=== PATIENT | male | born 1995 | race Caucasian/White ===

== ENCOUNTER 2020-05-26 19:02 | Emergency (ER) | payer BC, SELFPAY ==
[2020-05-26 19:07] VITALS: BP 136/84; PULSE 84; RESP 16; TEMP 36.7; O2SAT 99
--- NOTE | 2020-05-26 19:10 | ED.GENADUL_ITS ---
Discharge Plan Disposition Patient Disposition: HOME Condition: Good Discharge Details Clinical Impression: Adverse reaction to drug Primary Care Provider: Alejo Lai ED Provider: Margarita Hargrove Home Meds and New Rx's Prescriptions: No Action No Known Home Meds RF: 0 Discharge Instructions Instructions: Anaphylaxis (ED) Additional Instructions: Your exam and vital signs are reassuring here today. No evidence of allergic reaction at this time. However, if you develop shortness of breath, to breathing, wheezing, rash, vomiting or other new/worsening symptoms to seek care urgently once again. Otherwise, please follow-up with primary care next week for reevaluation. Referrals: Bettye Aguilar [Emergency Nurse] - Discharge Data Discharge Date/Time-TO BE ENTERED AT DEPARTURE: 05/26/20 20:24 Medical Decision Making Patient is a 24-year-old gentleman presenting today with concern for potential reaction from [employer] Covid vaccine. Reports he received the vaccine approximately 1 hour ago. He states that 10 minutes after receiving the injection, he noted his injected arm was painful, felt nauseous and felt he was going to have diarrhea. He reports that he resisted the urge of any diarrhea or vomiting. The symptoms have since subsided and now he is feeling hazy. On exam, patient appears anxious. Vital signs are stable. Lungs are clear. No rash. No intraoral lesions. Not see any evidence to suggest allergic reaction at this point. His vague, brief and ever-changing symptoms, I have been questioning of this may be anxiety driven. Out of an abundance of caution however, please keep monitor on the patient and will continue to reassess him for any developing symptoms. Patient was monitored in department for another hour. Reporting his symptoms clearly resolved. Feeling back to baseline. Advised that I am unclear if this is an adverse reaction versus anxiety associated with the vaccine. I did advise follow-up with primary care in 1 week for reevaluation. Return precautions were discussed. Patient does live locally and is able to return if he develops any signs of allergic reaction. All of his questions and concerns were addressed and he is in agreement this plan. HPI General Mode of arrival: ambulatory . Date/Time Provider Initiated Documentation: 05/26/20 19:10 . Limitations to Documentation: no limitations . Information obtained by: patient and RN notes reviewed . History of Present Illness 24 year old M presents to the emergency department with the chief complaint of Feels hazy, described as moderate, Quality is described as aching (Left arm), and is localized to the left and upper extremity. Patient reports no radiation. Patient started experiencing this hour(s) (1) and it has been other (Symptoms have been evolving since Covid vaccine). No relieving factors improve symptom(s), Other factors that worsen symptoms (Occurred after receiving Covid vaccine) . Patient notes nausea/vomiting (Nauseated initially, now resolved); denies chest pain, fever/chills, headaches, rash, shortness of breath, syncope and weakness. Patient did receive the following treatments prior to arrival, none Related Data Home Medications Medication Instructions Recorded Confirmed Unknown [No Known Home Meds] 04/29/17 05/26/20 Allergies Allergy/AdvReac Type Severity Reaction Status Date / Time No Known Allergies Allergy Unverified 05/26/20 19:13 Review of Systems Constitutional Constitutional: Reports as per HPI, Denies chills, Denies fever(s) and Denies headache(s) Eyes Eyes: Reports as per HPI ENT Ears, Nose, Mouth, and Throat: Reports as per HPI and Denies headache(s) Cardiovascular Cardiovascular: Denies chest pain Respiratory Respiratory: Reports as per HPI Gastrointestinal Gastrointestinal: Reports as per HPI Integumentary/Breasts Skin/Breast: Reports as per HPI Neurologic Neurologic: Denies headache(s) [facility] Social History Smoking/Tobacco Use Status: Never Smoking risk assessment performed?: Yes Alcohol Intake: current Alcohol Intake frequency: holidays/special occasions only Drug use: Never Substance use type: does not use Do you feel safe at home: Yes Do you feel safe in your relationship?: Yes Exam Const General: cooperative, healthy appearing, comfortable, no acute distress, well developed and anxious Nutritional Appearance: average body habitus and well nourished Orientation: alert, awake and oriented x3 HENMT Head: normal to inspection Ears: hearing grossly normal bilaterally Face and sinus: normal facial exam Mouth: oral mucosae normal, lip normal, tongue normal, oropharynx normal, moist mucous membranes, no drooling and no muffled voice Teeth and gingiva: dentition normal Throat: posterior oropharynx normal Eyes General: appearance normal, both eyes and all related structures Neck Neck: normal visual inspection, full ROM, no lymphadenopathy, no meningeal signs and trachea midline Resp Effort & Inspection: normal respiratory effort, able to speak in complete sentences, no respiratory distress and no use of accessory muscles Auscultation: clear to auscultation bilaterally Cardio Rate: regular rate Rhythm: regular rhythm Heart Sounds: S1 normal and S2 normal Skin General skin exam: no rashes or lesions noted Neuro General: patient alert and patient awake Cognition: normal cognition Speech: speech normal Gait: normal gait Psych Appearance: grossly normal and well kempt Mental Status: mental status grossly normal Speech and Movement: speech and movement normal
[2020-05-26 19:21] VITALS: BP 131/82; PULSE 68; PULSE 73; RESP 9; O2SAT 100
[2020-05-26 19:22] VITALS: PULSE 80; RESP 9; O2SAT 100
[2020-05-26 19:30] VITALS: PULSE 77; RESP 14; O2SAT 100
[2020-05-26 19:32] VITALS: BP 100/72; PULSE 69; PULSE 73; RESP 16; O2SAT 100
[2020-05-26 20:22] VITALS: BP 112/70; PULSE 84; RESP 16; O2SAT 100
== END 2020-05-26 20:24 | disposition home or self-care (01) ==
PROVIDERS: Emergency Provider Physician Assistant; PCP Pediatrics
DX: R11.0 Nausea (principal); R41.0 Disorientation, unspecified; T50.B95A Adverse effect of other viral vaccines, initial encounter
CPT/HCPCS: 99281; 99282

== ENCOUNTER 2022-06-06 11:52 | Outpatient (CLI) | payer BC, SELFPAY ==
--- NOTE | 2022-06-06 11:45 | RT.EKG_ITS ---
APPROVED REPORT Exam: Resting ECG Reason for Exam: VASILIYI Patient Location: O HR:87 bpm ECG Measurements Heart Rate 87 AXIS CA 135 P 52 QRSd 93 QRS 71 QT 339 T 61 QTc 408 Conclusion Sinus rhythm...normal P axis, V-rate 50- 99
== END 2022-06-06 11:53 | disposition home or self-care (01) ==
LOC: DI.CM 11:53
PROVIDERS: PCP Pediatrics; Visit Provider Physician Assistant
DX: R07.89 Other chest pain (principal)
CPT/HCPCS: 93010

== ENCOUNTER 2022-08-11 16:57 | Emergency (ER) | payer BC, SELFPAY ==
[2022-08-11 17:09] VITALS: BP 136/82; PULSE 92; RESP 15; TEMP 37.2; O2SAT 97
--- NOTE | 2022-08-11 18:00 | DI.RAD_ITS ---
Exam(s) XR FINGER RT INDEX EXAM: XR FINGER RT INDEX CLINICAL HISTORY: pip joint pain. TECHNIQUE: 2D digital imaging was performed. COMPARISON: No exams were available for comparison FINDINGS: 3 views No evidence fracture or dislocation. Some swelling around PIP joint level of the finger is noted but no fracture seen. No radiopaque foreign body. IMPRESSION: Soft tissue swelling in the region the PIP joint. However, there are no fractures DATA REPOSITORY: RADIATION DOSE DELIVERED:
--- NOTE | 2022-08-11 19:04 | DI.VRAD_ITS ---
PROCEDURE INFORMATION: Exam: XR Right Finger(s) Exam date and time: 08/11/2022 6:41 PM Age: 27 years old Clinical indication: Other: Pip pain TECHNIQUE: Imaging protocol: Radiologic exam of the right fingers. Views: Minimum 2 views. COMPARISON: No relevant prior studies available. FINDINGS: Bones/joints: Overall osseous mineralization is normal. There is a 1.5 x 1 mm focal osseous lucency at the dorsal base of the 2nd middle phalanx adjacent to the proximal interphalangeal joint on the lateral view. There are no acute displaced fractures or subluxations. The joint spaces are maintained without degenerative changes. Soft tissues: There is mild soft tissue swelling around the 2nd proximal interphalangeal joint. IMPRESSION: Mild soft tissue swelling around the 2nd proximal interphalangeal joint. There is a 1 x 1.5 mm focal osseous lucency adjacent to the 2nd proximal interphalangeal joint on one view. Cannot exclude tiny inflammatory osseous erosion associated with inflammatory arthropathy. Recommend clinical correlation. Dictated and Authenticated by: Glenn Garza MD. Ordering:SARAH Solis MD
--- NOTE | 2022-08-11 22:48 | W.ED.GENAD ---
Discharge Plan Disposition Patient Disposition: Home Condition: Stable Discharge Details Clinical Impression: Finger swelling, Decreased range of motion of finger Primary Care Provider: Lindsey Katz ED Provider: Irma Reynolds Home Meds and New Rx's Prescriptions: No Action No Known Home Meds Discharge Instructions Additional Instructions: Take ibuprofen and Tylenol as needed for pain Follow-up with orthopedics you return earlier should you have new or worsening complaints Referrals: Jose Angel Morton MD [ [facility] STAFF PHYSICIAN] - Medical Decision Making Patient with swelling and tenderness to PIP joint, no overlying erythema, diminished flexion significantly, extension intact Vascularly intact with brisk cap refill No evidence of secondary infection X-ray shows possible arthritis but also concern for volar plate fracture, will refer to orthopedics for further assessment Return precautions reviewed and patient expressed understanding HPI General Date/Time Provider Initiated Documentation: 08/11/22 18:12. HPI Narrative: This 27-year-old male presents with report of right index finger injury 3 months ago. He states that he has been persistently swelling which is why he presents. States he is having difficulty flexing it at this time. Denies any redness. States has been wearing a splint intermittently. Related Data Home Medications Medication Instructions Recorded Confirmed Unknown [No Known Home Meds] 04/29/17 08/11/22 Allergies Allergy/AdvReac Type Severity Reaction Status Date / Time No Known Allergies Allergy Unverified 08/11/22 17:25 General Stated Complaint: Orthopedic CASI: 4 PFSH All Active Problems (Updated 08/11/22 @ 19:15 by MARILIN Montemayor) Finger swelling (Acute) Decreased range of motion of finger (Acute) Adverse reaction to drug (Acute) Social History Smoking/Tobacco Use Status: Never Smoking risk assessment performed?: Yes Alcohol Intake: current Alcohol Intake frequency: holidays/special occasions only Drug use: Never Substance use type: does not use Do you feel safe at home: Yes Do you feel safe in your relationship?: Yes Course Vital Signs Vital signs: Vital Signs Temperature 37.2 C 08/11/22 17:09 Pulse 92 H 08/11/22 17:09 Respiratory Rate 15 08/11/22 17:09 Blood Pressure 136/82 08/11/22 17:09 Pulse Oximetry 97 08/11/22 17:09 Temperature 37.2 C 08/11/22 17:09 Temperature Source Oral 08/11/22 17:09 Pulse 92 H 08/11/22 17:09 Respiratory Rate 15 08/11/22 17:09 Respiratory Effort Normal 08/11/22 17:12 Blood Pressure 136/82 08/11/22 17:09 Blood Pressure Position Sitting 08/11/22 17:09 Pulse Oximetry 97 08/11/22 17:09 Oxygen Delivery Method Room Air 08/11/22 17:09 Oxygen Flow Rate 0 08/11/22 17:09 Pain Level 2 08/11/22 17:13
== END 2022-08-11 19:25 | disposition home or self-care (01) ==
PROVIDERS: Emergency Provider Physician Assistant; PCP Nurse Practitioner Family
DX: R22.31 Localized swelling, mass and lump, right upper limb (principal); M25.641 Stiffness of right hand, not elsewhere classified
CPT/HCPCS: 99283; 73140